=== PATIENT | male | born 1940 | race Caucasian/White ===

== ENCOUNTER 2020-01-16 17:15 | Inpatient (IN) | payer MEDICARE, BC ==
[~2020-01-16] VITALS: Ht 175.3 cm; Wt 82.6 kg
--- NOTE | 2020-01-16 17:16 | NUR ---
GIO FROM [facility] FOR BEING AGGRESSIVE TO STAFF. TO ER BED 11, HOOKED TO MONITOR, CHANGED TO HOSP GOWN, WARM BLANKET PROVIDED, PATIENT AAO x 2, PATIENT CALM AND COOPERATIVE UPON ARRIVAL IN ED. STATES "THEY HAVE NOT BEEN NICE TO ME AND IT HAS BEEN GOING ON FOR A LONG TIME NOW". SITTER AT BEDSIDE FOR SAFETY. AWAITING MD BENTLEY.
--- NOTE | 2020-01-16 17:17 | NUR ---
DR NANCE AT BEDSIDE
[2020-01-16 17:40] LABS: BASOPHILS % (AUTO) 0.3 % (0.0-2.0); EOSINOPHILS % (AUTO) 0.1 % (0.0-6.0); HEMATOCRIT 31 % (39-51); HEMOGLOBIN 10.5 g/dL (13.5-17.5); LYMPHOCYTES # (AUTO) 0.5 /CMM (0.8-4.8); LYMPHOCYTES % (AUTO) 17.3 % (20.0-44.0); MEAN CORPUSCULAR HGB CONC 34 g/dl (31.0-36.0); MEAN CORPUSCULAR VOLUME 93 fL (80-96); MONOCYTES # (AUTO) 0.4 /CMM (0.1-1.30); MONOCYTES % (AUTO) 14.5 % (2.0-12.0); NEUTROPHILS # (AUTO) 1.8 /CMM (1.8-8.9); NEUTROPHILS % (AUTO) 67.8 % (43.0-81.0); PLATELET COUNT (AUTO) 114 /CMM (150-450); RED BLOOD CELL COUNT(AUTO) 3.34 MIL/uL (4.5-6.0); WHITE BLOOD COUNT (AUTO) 2.6 K/uL (4.3-11.0)
[2020-01-16 17:56] LABS: CALCIUM, SERUM 8.6 mg/dL (8.5-10.1); CARBON DIOXIDE 31 mmol/L (21-32); CHLORIDE 102 mmol/L (98-107); CREATININE 1.9 mg/dL (0.6-1.3); GLUCOSE 136 mg/dL (74-106); POTASSIUM 3.4 mmol/L (3.5-5.1); SODIUM SERUM 141 mmol/L (136-145); UREA NITROGEN, BLOOD 36 mg/dL (7-18)
[2020-01-16 18:00] LABS: ALANINE AMINOTRANSFERASE 19 U/L (12-78); ALBUMIN 3.7 g/dL (3.4-5.0); ALCOHOL, BLOOD < 3 mg/dL (0-0); ALKALINE PHOSPHATASE 108 U/L (46-116); ASPARTATE AMINOTRANSFERASE 21 U/L (15-37); BILIRUBIN,DIRECT 0.2 mg/dL (0.0-0.2); BILIRUBIN,TOTAL 0.8 mg/dL (0.2-1.0); TOTAL PROTEIN, SERUM 7.3 g/dL (6.4-8.2)
[2020-01-16 18:01] LABS: ACETAMINOPHEN 0 ug/ml (10-30); SALICYLATE 1.2 mg/dL (2.8-20.0)
[2020-01-16 18:14] LABS: BAND % (MANUAL) 1 % (0.0-5.0); LYMPHOCYTES % (MANUAL) 17 % (16-48); MONOCYTES % (MANUAL) 9 % (0-11.0); NEUTROPHILS % (MANUAL) 73 (42-76)
--- NOTE | 2020-01-16 18:26 | NUR ---
URINE SAMPLE COLLECTED VIA STRAIGHT CATHETER, SAMPLE SENT TO LAB.
[2020-01-16 18:54] LABS: APPEARANCE,URINE Clear (CLEAR); BILIRUBIN,URINE Negative (NEGATIVE); BLOOD, URINE Negative Ery/uL (NEGATIVE); COLOR,URINE Yellow (YELLOW); KETONES,URINE Negative (NEGATIVE); LEUKOCYTE ESTERASE ,URINE Negative (NEGATIVE); NITRITE, URINE Negative (NEGATIVE); PROTEIN,URINE Negative (NEGATIVE); UGLUCOSE Negative (NEGATIVE)
--- NOTE | 2020-01-16 19:13 | NUR ---
REPORT GIVEN TO KRYS PRIEST FOR DAVID
[2020-01-16 19:16] LABS: BACTERIA,URINE Few /HPF (None Seen); RBC,URINE 0-2 /HPF (0-2); SQUAMOUS EPITHELIAL CELL,UR Few /HPF (None Seen); WBC,URINE 0-2 /HPF (0-3)
--- NOTE | 2020-01-16 19:17 | NUR ---
PT REASSESSED. NO ACUTE DISTRESS NOTED.VSS. WILL CONTINUE TO MONITOR
--- NOTE | 2020-01-16 19:29 | NUR ---
GWYN [phone] PT'S DAUGHTER
--- NOTE | 2020-01-16 19:36 | NUR ---
CALLED SUSY. LEFT VOICEMAIL
--- NOTE | 2020-01-16 19:55 | NUR ---
CALLED SUSY, SAYS SHE'LL BE HERE
--- NOTE | 2020-01-16 21:33 | NUR ---
SUSY, SKEIN BANDER AT BEDSIDE
--- NOTE | 2020-01-16 21:46 | NUR ---
CALL BACK IN 15 MINS PER GPS
--- NOTE | 2020-01-16 21:50 | NUR ---
COVID SWAB SENT TO LAB
--- NOTE | 2020-01-16 22:04 | NUR ---
REPORT GIVEN TO CEM DE LA GARZA
[2020-01-16] MEDS ORDERED: ESCI20TA PO (22:07)
[2020-01-16] MEDS ORDERED: DIVA-78 PO (22:07)
[2020-01-16] MEDS ORDERED: FURO40TA5 PO (22:08)
[2020-01-16] MEDS ORDERED: APIX2.5T PO (22:08)
[2020-01-16] MEDS ORDERED: FINA5TAB11 PO (22:08)
[2020-01-16] MEDS ORDERED: GLIM4TAB37 PO (22:09)
[2020-01-16] MEDS ORDERED: PIOG45TA5 PO (22:09)
[2020-01-16] MEDS ORDERED: QUET50TA PO (22:10)
[2020-01-16] MEDS ORDERED: CYAN-51 PO (22:10)
[2020-01-16] MEDS ORDERED: MELA5TAB PO (22:11)
[2020-01-16] MEDS ORDERED: QUET200T84 PO (22:12)
[2020-01-16] MEDS ORDERED: MEMA10TA PO (22:12)
[2020-01-16] MEDS ORDERED: TAMS-12 PO (22:13)
[2020-01-16] MEDS ORDERED: TEMA15CA PO (22:13)
[2020-01-16 23:00] VITALS: BP 103/57
--- NOTE | 2020-01-16 23:01 | NUR ---
PT TRANSFERRED TO ROOM IN STABLE CONDITION
--- NOTE | 2020-01-16 23:05 | NUR ---
GPS INFANTRYMAN NOTES PATIENT IS A 79 YEAR OLD MALE ADMITTED FROM [facility] TO [facility] ER & THEN TO GPS UNIT TO ROOM 220-1, PATIENT IS A & O X 2, CONFUSED/ FORGETFUL. HAS DEMENTIA, ANXIOUS & UNCOOPERATIVE AT TIMES. ISOLATIVE, WITHDRAWN. WANTS TO GO BACK HOME & KEEPS REPEATING IT. REFUSED SKIN CHECK TO HIS PERINEAL AREA & THIGHS. PER 5150 HOLD, PATIENT HAS BEEN AGITATED & AGGRESSIVE AT THE FACILITY. HE HAS H/O DEPRESSION & IS CURRENTLY UNMANAGABLE AT THE FACILITY. UPON FACE TO FACE ASSESSMENT, KAYCEE STATED," I DIDN'T DO ANYTHING." WHY AM I HERE ? HE THEN ADMITTED THAT HE HAS NO MEMORY OF THE EVENTS OF EARLIER. HIS DAUGHTER GWYN REPORTS THAT KAYCEE WAS YELLING AT STAFF & SPITTING AT STAFF AT THE FACILITY & THAT HE WAS REFUSING TO FOLLOW STAFF DIRECTIONS. HE WAS WANDERING INTO OTHER RESIDENTS ROOMS & TELLING STAFF THAT THEY WERE BEATING HIM UP & NOT GIVING HIM HIS SLEEPING MEDICATION. HE CAN NOT BE SAFELY MANAGED AT THE FACILITY UNTIL HE HAS BEEN STABILIZED ON HIS MEDICATION.DENIES SI/HI/AVH AT THIS TIME. PLACED CLOSED TO NURSES STATION FOR FREQUENT VISUAL CHECKS. VSS. NO ACUTE DISTRESS NOTED. NO C/O PAIN VERBALIZED. PT. IS UNDER THE PSYCHIATRIC CARE OF DR. DAS & THE MEDICAL CARE OF DR. MORALES. BELONGINGS CHECKED & INVENTORIED. REFUSED TO SIGN ALL PAPERS DUE TO CONFUSION. PATIENT IS AMBULATORY/STEADY. PATIENT'S RIGHTS HANDBOOK GIVEN. MADE AWARE. MED RECON DONE. ALL NEEDS ATTENDED TO & MET. SAFETY MEASURES MAINTAINED. BED ALARM ON, BED IN LOW/LOCKED POSITION. WILL CONTINUE TO MONITOR PATIENT Q15 MINUTES FOR SAFETY AND BEHAVIOR.
[2020-01-16] MEDS ORDERED: BLOOD SUGAR DIAGNOSTIC 1 EACH STRIP IN ONE (23:30)
[2020-01-16] MEDS ORDERED: MAG HYDROX/AL HYDROX/SIMETH 30 ML UDC PO PRN (23:30)
[2020-01-16] MEDS ORDERED: MAGNESIUM HYDROXIDE 30 ML UDC PO PRN (23:30)
[2020-01-17] MEDS: TEMAZEPAM 7.5 MG CAPSULE PO PRN (00:01)
--- NOTE | 2020-01-17 00:05 | NUR ---
GPS RN NOTE DR. MORALES IS VISITING A PATIENT & ASSURED THAT HE WILL RECONCILE THE MEDS.
--- NOTE | 2020-01-17 00:05 | NUR ---
GPS RN NOTE: INSOMNIA PATIENT VERBALIZED THAT HE IS UNABLE TO SLEEP & WOULD NEED HIS SLEEPING PILL. PRN RESTORIL 7.5 MG 1 CAP PO GIVEN. WILL CONTINUE TO MONITOR FOR EFFECTIVENESS.
[2020-01-17 08:00] VITALS: BP 112/50
[2020-01-17] MEDS: CYANOCOBALAMIN 500 MCG TABLET PO SCH (08:51)
[2020-01-17] MEDS: FINASTERIDE (5 MG) 5 MG TABLET PO SCH (08:51)
[2020-01-17] MEDS: PIOGLITAZONE HCL 15 MG TABLET PO SCH (08:51)
[2020-01-17] MEDS: APIXABAN 2.5 MG TABLET PO SCH ×2 (08:52→17:23)
[2020-01-17] MEDS ORDERED: FUROSEMIDE 40 MG TABLET PO SCH (09:00)
--- NOTE | 2020-01-17 09:00 | NUR ---
RN NOTE- PT IN ROOM ALERT CONFUSED DISORGANIZED THOUGHT PROCESS MED COMPLIANT PO INTAKE FAIR DENYING ALL
--- NOTE | 2020-01-17 12:22 | NUR ---
FACILITY CONTACT: RAMY contacted [facility] Address: [address] [facility], [place] [address] and spoke with Carin, senior oracle database administrator who states pt is able to return to the facility. She also mentioned that pt tested negative for COVID-19 on 01/12/20 but is recommending pt be retested as he laid on another residents bed who tested positive.
--- NOTE | 2020-01-17 12:32 | NUR ---
FAMILY CONTACT: RAMY contacted pts daughter Odilia ([phone]) for collateral information and discharge/treatment planning. Daughter states this is pts second psychiatric hospitalization she states that pt was diagnosed with Dementia in 2008 and declines rapidly after he was hospitalized at the beginning of this year due a blood cot. She states pt was sent to [facility] and was there for 2 weeks. Pt was then discharged to [facility] where pt had a hard time adjusting and has only been there for 3/4 months before he was hospitalized again. Daughter states pt has episodes of aggression and non-compliance. Daughter wishes for pt to return to [facility].
--- NOTE | 2020-01-17 13:33 | NUR ---
INITIAL DISCHARGE PLAN: Pt will return to [facility] Address: [address], [place] [address] once stable for discharge. RAMY will help form a safe and proper discharge in collaboration with .
[2020-01-17] MEDS: LORAZEPAM 0.5 MG TABLET PO PRN (14:30)
--- NOTE | 2020-01-17 14:30 | NUR ---
RN NOTE- PT BECOMING AGITATED TRYING TO LEAVE AND YELLING. ATIVAN 0.5 MG GIVEN
[2020-01-17] MEDS ORDERED: QUETIAPINE FUMARATE 25 MG TABLET PO ONE (15:00)
--- NOTE | 2020-01-17 15:06 | NUR ---
RN NOTE- PT AGITATED, DR DAS ORDERED SEROQUEL 25 MG X ONE DOSE NOW. REDIRECTED PT, PHONED SPOUSE SAT AND TALKED. SEROQUEL GIVEN. ASSIST ENCOURAGE REORIENT
--- NOTE | 2020-01-17 15:11 | NUR ---
GROUP THERAPY: Pt is not appropriate for group at this time or individual therapy as pt is labile and easily agitated. Pt was yelling at nurse that he wanted to leave immediately. Pt is cognitively impaired and anxious and has been wandering the hallway.
--- NOTE | 2020-01-17 15:50 | NUR ---
RN NOTE- RX EFFECTIVE DECREASED ANXIETY
[2020-01-17 16:00] VITALS: BP 119/52
[2020-01-17] MEDS: TAMSULOSIN 0.4 MG CAP.SR.24H PO SCH (17:22)
[2020-01-17] MEDS: MEMANTINE HCL 5 MG TABLET PO SCH (17:22)
[2020-01-17] MEDS: DIVALPROEX SODIUM 125 MG CAP.SPRINK PO SCH (17:22)
--- NOTE | 2020-01-17 17:30 | NUR ---
RN NOTE- PT DC AT THIS TIME TO [facility] VIA AMBULANCE AND GURNEY. PT DC PLANNING AND AFTERCARE REVIEWED W PT AND AMBULANCE STAFF. VERBALIZED UNDERSTANDING. VS STABLE, PT ALERT ORIENTED X 4. BRYANIES SI HI [facility] AT PRESENT. VALUABLES RETURNED TO PT. SKIN INTACT NO PHOTOS REQUIRED. REPORT CALLED IN TO JAYDA PRIEST AT FACILITY. ID [id number] REMOVED AND ESCORTED OFF UNIT. Addendum: 01/17/20 at 1737 by CHILANGO FITZGERALD RN DOCUMENTED ABOVE ON WRONG PATIENT
--- NOTE | 2020-01-17 17:31 | NUR ---
RN NOTE- ABOVE NOTE DOCUMENTED ON WRONG PATIENT
[2020-01-17 19:32] LABS: CHOLESTEROL 165 mg/dL (<200); HDL CHOLESTEROL 52 mg/dL (40-60); LDL 103 mg/dL (0-99); TRIGLYCERIDES 122 mg/dL (30-150)
[2020-01-17 19:39] LABS: CREATININE 1.7 mg/dL (0.6-1.3)
[2020-01-17] MEDS ORDERED: QUETIAPINE FUMARATE 25 MG TABLET PO SCH (20:00)
[2020-01-17] MEDS: QUETIAPINE FUMARATE 25 MG TABLET PO SCH (20:33)
[2020-01-17 20:54] VITALS: BP 150/79
--- NOTE | 2020-01-18 00:49 | NUR ---
GPS RN NOTES: RECEIVED CALL FROM [employer] W/ PT RESULTS POSITIVE COVID. PT HAS NO S/S OF RESP DISTRESS. BREATHING EVEN AND UNLABORED. NO S/S OF SOB. NO S/S OF COUGHING OR FEVER AT THIS TIME. NOTIFIED CONSTRUCTION SALES REPRESENTATIVE MD DR MORALES. DR MORALES AWARE. NOTIFIED AND MADE AWARE NURSING COMPLIANCE REVIEW OFFICER. IMPLEMENTED ISOLATION DROPLET PRECAUTIONS. ALL SAFETY MEASURES IN PLACE . HOWEVER PT UNABLE TO MAKE THINGS KNOWN. CONTINUE TO MONITOR PT.
--- NOTE | 2020-01-18 02:23 | NUR ---
Patient will be transferred to room 105 at 07:00 to r/o positive COVID19 test result per nursing supRoberto.
--- NOTE | 2020-01-18 06:16 | NUR ---
GPS RN NOTES: GAVE REPORT TO ARLET NURSE CASIANO IN REGARDS TO PTS TRANSFER. NOTIFIED PTS TOMAS, PTS TRANSFER / ROOM NUMBER 105. CONTINUE TO MONITOR PT.
[2020-01-18 06:39] LABS: BASOPHILS % (AUTO) 0.1 % (0.0-2.0); HEMATOCRIT 30 % (39-51); LYMPHOCYTES # (AUTO) 0.3 /CMM (0.8-4.8); LYMPHOCYTES % (AUTO) 10.7 % (20.0-44.0); MEAN CORPUSCULAR HGB CONC 34 g/dl (31.0-36.0); MEAN CORPUSCULAR VOLUME 93 fL (80-96); MONOCYTES # (AUTO) 0.4 /CMM (0.1-1.30); MONOCYTES % (AUTO) 14.2 % (2.0-12.0); NEUTROPHILS # (AUTO) 2.3 /CMM (1.8-8.9); PLATELET COUNT (AUTO) 122 /CMM (150-450)
--- NOTE | 2020-01-18 07:03 | NUR ---
RN Note: Dr Peters was notified for the transfer of the patient to room 105 .
[2020-01-18 07:06] LABS: CREATINE KINASE, TOTAL 129 U/L (39-308)
[2020-01-18 07:11] LABS: ALANINE AMINOTRANSFERASE 20 U/L (12-78); ALBUMIN 3.4 g/dL (3.4-5.0); ALKALINE PHOSPHATASE 102 U/L (46-116); ASPARTATE AMINOTRANSFERASE 24 U/L (15-37); BILIRUBIN,TOTAL 0.9 mg/dL (0.2-1.0); CALCIUM, SERUM 8.5 mg/dL (8.5-10.1); CARBON DIOXIDE 30 mmol/L (21-32); CHLORIDE 100 mmol/L (98-107); CREATININE 1.6 mg/dL (0.6-1.3); GLUCOSE 157 mg/dL (74-106); MAGNESIUM 2.1 mg/dL (1.8-2.4); PHOSPHORUS 2.4 mg/dL (2.5-4.9); POTASSIUM 3.5 mmol/L (3.5-5.1); SODIUM SERUM 138 mmol/L (136-145); TOTAL PROTEIN, SERUM 7.3 g/dL (6.4-8.2); UREA NITROGEN, BLOOD 29 mg/dL (7-18)
--- NOTE | 2020-01-18 07:35 | NUR ---
GPS RN NOTES: TRANSFER PT TO ARLET ROOM 105. NO S/S OF RESP DISTRESS. BREATHING EVEN AND UNLABORED. NO PAIN AT THIS TIME. GAVE REPORT TO RN TAYLER. HOLD GIVEN TO RN.
[2020-01-18 08:00] VITALS: BP 117/47
[2020-01-18] MEDS: PIOGLITAZONE HCL 15 MG TABLET PO SCH (08:45)
[2020-01-18] MEDS: DIVALPROEX SODIUM 125 MG CAP.SPRINK PO SCH ×2 (08:45→17:02)
[2020-01-18] MEDS: CYANOCOBALAMIN 500 MCG TABLET PO SCH (08:46)
[2020-01-18] MEDS: APIXABAN 2.5 MG TABLET PO SCH ×2 (08:46→17:03)
[2020-01-18] MEDS: FINASTERIDE (5 MG) 5 MG TABLET PO SCH (08:46)
[2020-01-18 11:46] LABS: APPEARANCE,URINE CLEAR (CLEAR); BILIRUBIN,URINE NEGATIVE (NEGATIVE); BLOOD, URINE SMALL Ery/uL (NEGATIVE); COLOR,URINE YELLOW (YELLOW); KETONES,URINE NEGATIVE (NEGATIVE); LEUKOCYTE ESTERASE ,URINE NEGATIVE (NEGATIVE); NITRITE, URINE NEGATIVE (NEGATIVE); PROTEIN,URINE 30 mg/dl (NEGATIVE); UGLUCOSE NEGATIVE (NEGATIVE)
[2020-01-18 12:19] LABS: BACTERIA,URINE None seen /HPF (None Seen); RBC,URINE 0-2 /HPF (0-2); SQUAMOUS EPITHELIAL CELL,UR 0-2 /HPF (None Seen)
[2020-01-18] MEDS ORDERED: NEUTRA PHOS 1 POWD.PACKET PO ONE (12:30)
[2020-01-18] MEDS: LORAZEPAM 0.5 MG TABLET PO PRN ×2 (12:44→17:03)
[2020-01-18 13:29] LABS: EOSINOPHIL,URINE None Seen
[2020-01-18 14:09] LABS: CREATININE, URINE 157.3 MG/DL (30.0-125.0)
[2020-01-18 16:00] VITALS: BP 148/51
--- NOTE | 2020-01-18 16:49 | NUR ---
rn notes patient trying to get out of isolation room, showed patient a copy of his hold and covid + results and he just crumpled them and threw it back to us. Patient refusing medications at this time.
[2020-01-18] MEDS: MEMANTINE HCL 5 MG TABLET PO SCH (17:03)
[2020-01-18] MEDS: TAMSULOSIN 0.4 MG CAP.SR.24H PO SCH (17:03)
--- NOTE | 2020-01-18 18:02 | NUR ---
rn notes patient remains on room air, no sob noted, patient denies pain at this time. 1;1 sitter at all times, patient wants to go home and is acting up at times. Calm at this time. bed at the lowest setting, call light within reach, side rails up x2.
--- NOTE | 2020-01-18 19:00 | NUR ---
RN OPENING NOTES RECEIVED PT ON LYING ON BED QUIET NON COMBATIVE, SITTER SITTING OUTSIDE THE ROOM BUT PT IS ON THE FIELD OF VISION, ON ROOM AIR TOLERATED WELL NO SIGN AND SYMPTOMS OF RESPIRATORY DISTRESS,ON DROPLET ISOLATION FOR COVID (+) SAFETY MEASURE ON PLACED BED ON LOWEST POSITION AND LOCKED SIDE RAILS UP X2, CALL LIGHT WITHIN REACH WILL CONT. TO MONITOR THE PT
[2020-01-18 20:00] VITALS: BP 129/76
[2020-01-18] MEDS: QUETIAPINE FUMARATE 25 MG TABLET PO SCH (20:29)
--- NOTE | 2020-01-18 21:00 | NUR ---
RN NOTES PT GET UP ON BED AND LOOKING FOR THE TOILET, ASSIST PT TO TOILET AND BACK TO HIS BED, PT BEGONE TALKING TO ME, HE SAID THAT HE WANT TO GO HOME, EXPLAIN TO HIM THAT HE CANNOT GO HOME BECAUSE HE IS COVID (+), PT TOLD ME THAT HE IS MAD BECAUSE SOMEBODY TOLD HIM THAT HE CAN GO HOME YESTERDAY BUT THEY STILL HOLD HIM HERE LIKE A SKILLED NURSING, I TOLD HIM THAT HE IS ON ISOLATION DUE TO THE COVID (+) AND MAYBE THATS THE REASON WHY HE WAS NOT DISCHARGE YET, ON THE MOMENT PT CRIED AND KEEP TELLING ME THAT IT IS VERY DISAPPOINTING THAT THEY KEEP ON LYING TO HIM, AND HE REALLY WANT TO GO HOME HE SAID THAT HE HAD A GOOD HOUSE AND BEAUTIFUL FAMILY, I TRY TO DIVERT THE ATTENTION OF THE PT AND ASK HIM THAT FOR NOW JUST TREAT ME HIS FAMILY AND JUST TALK TO ME AND ASK IF THERE IS SOMETHING HE WANTS. PT ASK WHAT TIME THEY WILL HAVE A BREAKFAST, I TOLD PT THAT IT IS ONLY 2030 IN EVENING AND SHOW TO HIM THE DARKNESS OUT SIDE THE WINDOW, THEN PT ASK FOR FOOD OFFER HIM SOME SANDWICH AND PT QUIETLY ATE THE SNACKS THAT I GAVE TO HIM, AFTER HE ATE AND AND TOOK HIS MEDICINE PT LAY DOWN TO HIS BED WILL CONT TO MONITOR THE PATIENT
[2020-01-19 04:00] VITALS: BP 126/76
--- NOTE | 2020-01-19 06:40 | NUR ---
RN CLOSING NOTES PT SLEEPING ON BED VIA ROOM AIR NO SIGN AND SYMPTOMS OF RESPIRATORY DISTRESS CALM AND QUIET RIGHT NOW BUT @ AROUND 4AM WHEN HE GO TO BATHROOM PT IS A LITTLE AGITATED AND IMPULSIVE HE DONT WANT SOME ASSISTANCE IN WALKING EVEN THOUGH HE ALMOST TRIPPED OFF ON THE BLANKET HE YELLED AT ME SAYING "IM NOT A KID DONT TOUCH ME", DROPLET ISOLATION MAINTAINED SAFETY PRECAUTION OBSERVED WILL ENDORSED TO AM SHIFT NURSE
--- NOTE | 2020-01-19 07:30 | NUR ---
RN OPENING NOTES RECEIVED PT from surgical corsetier nurse,PATIENT IN BED , SLEEPING CALMLY,ON RA, TOLERATING WELL, SKIN IS INTACT, ON LYING ON BED QUIET NON COMBATIVE, NO SIGN AND SYMPTOMS OF RESPIRATORY DISTRESS,ON DROPLET ISOLATION FOR COVID (+) SAFETY MEASURE ON PLACED BED ON LOWEST POSITION AND LOCKED SIDE RAILS UP X2, CALL LIGHT WITHIN REACH WILL CONT. TO MONITOR THE PT
[2020-01-19 08:00] VITALS: BP 139/85
[2020-01-19] MEDS: DIVALPROEX SODIUM 125 MG CAP.SPRINK PO SCH ×2 (08:54→17:08)
[2020-01-19] MEDS: FINASTERIDE (5 MG) 5 MG TABLET PO SCH (08:54)
[2020-01-19] MEDS: CYANOCOBALAMIN 500 MCG TABLET PO SCH (08:55)
[2020-01-19] MEDS: LORAZEPAM 0.5 MG TABLET PO PRN ×2 (08:56→16:00)
[2020-01-19] MEDS: APIXABAN 2.5 MG TABLET PO SCH ×2 (08:56→17:09)
[2020-01-19] MEDS: PIOGLITAZONE HCL 15 MG TABLET PO SCH (09:21)
[2020-01-19 10:45] VITALS: BP 139/85
--- NOTE | 2020-01-19 12:30 | NUR ---
RN NOTE Patient received call from tower hand informing him of the 14-day hold. Patient was upset stating he thought he is only on a 3-day hold. Spoke to Administrative Services Director GP Juliet and accdg to her there is a hearing to fight the 14 bed hold for the patient and they are trying to set up a conference call with the patient together with the hearing traveling sales representative. Informed Juliet patient has tendency to be inaccurate in his statement. For example earlier he stated he doesnt have COVID and no one in his assisted living place had COVID. Offered to show him results. When we gave him results he said he didnt say he was denying having COVID. Juliet understood. Will cont to follow up.
--- NOTE | 2020-01-19 14:46 | NUR ---
RN NOTE Seen and examined by Dr. Peters for psych consult through video/facetime. Patient was able to answer questions of the doctor for himself. Patient said yes when asked if he talked to the dividing machine operator. Alert and oriented of place and why he is hospitalized. Will cont to monitor.
--- NOTE | 2020-01-19 15:48 | NUR ---
Family Contact: SW contacted pts daughter, Odilia ([phone]), and informed her that the pt had a hearing today and that the pts hold was extended. SW then discussed potential discharge plans for the pt if he continues to test positive or if he will be negative. It was discussed that if the pt tests negative then he can go back to [facility] but if the pt continues to test positive then we will have to discharge the pt to a SNF for a period of time. Pts daughter understood and agreed to the plan.
--- NOTE | 2020-01-19 15:50 | NUR ---
PT WOKE UP, SCREAMING HE NEED TO CALL GROOVER RUNNER IMMEDIATELY, AGITATED AND TRYING TO LEAVE ROOM
[2020-01-19 16:00] VITALS: BP 131/65
[2020-01-19 16:10] LABS: *SPE ALBUMIN 3.3 g/dL (2.9-4.4); *SPE ALPHA-1-GLOBULIN 0.3 g/dL (0.0-0.4); *SPE ALPHA-2-GLOBULIN 1.1 g/dL (0.4-1.0); *SPE BETA GLOBULIN 1.1 g/dL (0.7-1.3); *SPE GLOBULIN, TOTAL 3.4 g/dL (2.2-3.9); *SPE M-SPIKE 0.3 g/dL (Not Observed)
[2020-01-19] MEDS: MEMANTINE HCL 5 MG TABLET PO SCH (17:42)
[2020-01-19] MEDS: TAMSULOSIN 0.4 MG CAP.SR.24H PO SCH (17:42)
--- NOTE | 2020-01-19 18:13 | NUR ---
RN CLOSING NOTES PT IN ROOM, WALKING AROUND, ON ROOM AIR, TOLERATING WELL, NO S/SX OF RESP DISTRESS, PATIENT BECOME CALM ND COOPERATIVE WITH STAFF, DROPLET ISOLATION MAINTAINED, PROVIDES ORAL HYGIENE SUPPLIES AND CLEAN GOWN, PT VERBALIZES GO TO THE SHOWER IN THE MORNING, SAFETY MEASURES IS IMPLEMENTED, CALL LIGHT WITHIN REACH, WILL ENDORSE TO PM SHIFT NURSE
--- NOTE | 2020-01-19 19:35 | NUR ---
RN OPENING NOTE RECEIVED PATIENT SITTING IN BED,ALERT ORIENTED X2 VERBALLY RESPONSIVE,AIRBORNE /DROPLET PRECAUTION.ANGRY,WALKING FREQUENTLY AND ASKING WHY HE CANNOT COME OUTSIDE OF HIS ROOM,COVID 19 POSITIVE, EXPLAINED,REORIENTED,BREATHING IS EVEN AND UNLABORED NO SOB NOT ACUTE DISTRESS NOTED,SAFETY MEASURE,BED ALARM IN PLACE, HE IS 5250 BED HOLD 14 DAYS EXPIRATION DATE IS 02/01/2020 ALSO HE HAS ONE TO ONE SITTER,CONTINUE TO MONITOR.
[2020-01-19] MEDS: ACETAMINOPHEN 325 MG TABLET PO PRN (19:37)
[2020-01-19 20:00] VITALS: BP 124/83
[2020-01-19] MEDS: QUETIAPINE FUMARATE 25 MG TABLET PO SCH (20:21)
[2020-01-20] VITALS: BP 124/83
[2020-01-20] MEDS: LORAZEPAM 0.5 MG TABLET PO PRN (02:28)
[2020-01-20 04:00] VITALS: BP 119/49
[2020-01-20] MEDS: ACETAMINOPHEN 325 MG TABLET PO PRN (05:01)
--- NOTE | 2020-01-20 05:10 | NUR ---
RN NOTE TEMPERATURE 101, ACETAMINOPHEN 650 MG GIVEN AT 5:00 AM CONTINUE TO MONITORING.
--- NOTE | 2020-01-20 06:20 | NUR ---
RN CLOSING NOTE, PATIENT REMAINS IN STABLE CONDITION, COVID POSITIVE,AIRBORNE/DROPLET ISOLATION,ALERT ORIENTED X1 ANGRY AGITATED,ALL DUE MEDS GIVEN MD ORDERED KEPT CLEAN AND DRY BREATHING IS EVEN AND UNLABORED NO PAIN,KEPT COMFORTABLE,KEPT CLEAN AND DRY STAY WITH SITTER ONE TO ONE,WILL ENDORSE TO COMING SHIFT FOR CONTINUATION OF CARE
[2020-01-20 08:00] VITALS: BP 137/79
--- NOTE | 2020-01-20 08:30 | NUR ---
RN OPENING NOTES RECEIVED PT. IN BED. NO ACUTE DISTRESS NOTED. PT. ON ROOM AIR, SATURATING WELL AT 97%. PT A&OX2-3, PERIODS OF CONFUSION. PT. SAFETY MAINTAINED. CALL LIGHT WITHIN REACH. WILL CONTINUE TO MONITOR.
[2020-01-20] MEDS: DIVALPROEX SODIUM 125 MG CAP.SPRINK PO SCH ×2 (08:53→18:05)
[2020-01-20] MEDS: CYANOCOBALAMIN 500 MCG TABLET PO SCH (08:53)
[2020-01-20] MEDS: FINASTERIDE (5 MG) 5 MG TABLET PO SCH (08:53)
[2020-01-20] MEDS: APIXABAN 2.5 MG TABLET PO SCH ×2 (08:53→18:07)
[2020-01-20] MEDS: PIOGLITAZONE HCL 15 MG TABLET PO SCH (08:53)
[2020-01-20] MEDS ORDERED: LOPERAMIDE HCL (2 MG CAP) 2 MG CAPSULE PO PRN (12:00)
[2020-01-20 16:00] VITALS: BP 141/84
[2020-01-20] MEDS ORDERED: QUETIAPINE FUMARATE 25 MG TABLET PO PRN (18:00)
[2020-01-20] MEDS: MEMANTINE HCL 5 MG TABLET PO SCH (18:05)
[2020-01-20] MEDS: TAMSULOSIN 0.4 MG CAP.SR.24H PO SCH (18:05)
--- NOTE | 2020-01-20 19:00 | NUR ---
RN CLOSING NOTES PT. IN BED. NO ACUTE DISTRESS NOTED. PT. ON ROOM AIR, SATURATING WELL AT 98%. PT A&OX2-3, PERIODS OF CONFUSION. PT. SAFETY MAINTAINED. CALL LIGHT WITHIN REACH. WILL ENDORSE PLAN OF CARE TO ONCOMING NURSE
[2020-01-20 20:00] VITALS: BP 133/75
[2020-01-20] MEDS: QUETIAPINE FUMARATE 25 MG TABLET PO SCH (20:09)
[2020-01-20] MEDS ORDERED: DIVALPROEX SODIUM 125 MG CAP.SPRINK PO SCH (22:00)
[2020-01-21] VITALS: BP 143/67
--- NOTE | 2020-01-21 01:08 | NUR ---
RN NOTE PT ASSISTED TO BATHROOM WHEN PT SUDDENLY STATED THAT HE FELT WEAK AND DIZZY AND THAT HE WAS GOING TO FALL. WITH HELP FROM 1:1 SITTER, PT WAS ASSISTED TO THE FLOOR. PT STATES THAT HE CANNOT STAND UP ANYMORE AND THAT HE IS SCARED. RN PROVIDED ACTIVE LISTENING AND ASSURED PT SAFETY. WITH 2 PERSON ASSIST, PT ASSISTED BACK TO BED IN STABLE CONDITION. BODY CHECK COMPLETED. NO SIGNS OF INJURY NOTED. SKIN INTACT. PT DENIES PAIN OR DISCOMFORT. TOILETING NEEDS ADDRESSED, REMINDED PT NOT TO GET UP FROM BED, REORIENTED PT PRN, CALL LIGHT WITHIN REACH, BED LOCKED AND IN LOW POSITION, BED ALARM ON, BILATERAL UPPER SIDERAILS RAISED, WILL CONTINUE TO MONITOR PATIENT.
--- NOTE | 2020-01-21 01:15 | NUR ---
RN NOTE VOLUNTEER RECRUITER ROSCOE SCHAEFER (VOLUNTEER RECRUITER PRECINCT CAPTAIN) NOTIFIED OF PT'S STATUS. NO NEW ORDERS GIVEN.
--- NOTE | 2020-01-21 07:04 | NUR ---
RN NOTE PT SLEEPING IN BED WITHOUT SIGNS OF DISTRESS OR DISCOMFORT. CALL LIGHT WITHIN REACH, BED IN LOW POSITION, BED ALARM ON, 1:1 SITTER AT BEDSIDE, ENDORSED TO MORNING RN FOR CONTINUATION OF CARE.
[2020-01-21 08:00] VITALS: BP 126/78
[2020-01-21] MEDS: FINASTERIDE (5 MG) 5 MG TABLET PO SCH (09:11)
[2020-01-21] MEDS: DIVALPROEX SODIUM 125 MG CAP.SPRINK PO SCH ×4 (09:11→22:40)
[2020-01-21] MEDS: PIOGLITAZONE HCL 15 MG TABLET PO SCH (09:11)
[2020-01-21] MEDS: CYANOCOBALAMIN 500 MCG TABLET PO SCH (09:11)
[2020-01-21] MEDS: QUETIAPINE FUMARATE 25 MG TABLET PO SCH ×4 (09:12→20:12)
[2020-01-21] MEDS: APIXABAN 2.5 MG TABLET PO SCH ×2 (09:18→16:26)
[2020-01-21] MEDS: LORAZEPAM 0.5 MG TABLET PO PRN ×2 (09:20→16:25)
[2020-01-21 12:59] LABS: BASOPHILS % (AUTO) 0.1 % (0.0-2.0); HEMATOCRIT 26 % (39-51); HEMOGLOBIN 8.8 g/dL (13.5-17.5); LYMPHOCYTES # (AUTO) 0.3 /CMM (0.8-4.8); LYMPHOCYTES % (AUTO) 9.5 % (20.0-44.0); MEAN CORPUSCULAR HGB CONC 34 g/dl (31.0-36.0); MEAN CORPUSCULAR VOLUME 92 fL (80-96); MONOCYTES # (AUTO) 0.3 /CMM (0.1-1.30); MONOCYTES % (AUTO) 7.6 % (2.0-12.0); NEUTROPHILS % (AUTO) 82.8 % (43.0-81.0); PLATELET COUNT (AUTO) 144 /CMM (150-450); RED BLOOD CELL COUNT(AUTO) 2.85 MIL/uL (4.5-6.0); WHITE BLOOD COUNT (AUTO) 3.6 K/uL (4.3-11.0)
[2020-01-21 13:28] LABS: VALPROIC ACID 21 ug/mL (50-100)
[2020-01-21 13:29] LABS: ALANINE AMINOTRANSFERASE 21 U/L (12-78); ALBUMIN 2.9 g/dL (3.4-5.0); ALKALINE PHOSPHATASE 76 U/L (46-116); ASPARTATE AMINOTRANSFERASE 35 U/L (15-37); BILIRUBIN,TOTAL 0.8 mg/dL (0.2-1.0); CALCIUM, SERUM 8.6 mg/dL (8.5-10.1); CARBON DIOXIDE 28 mmol/L (21-32); CHLORIDE 102 mmol/L (98-107); CREATININE 1.7 mg/dL (0.6-1.3); GLUCOSE 200 mg/dL (74-106); MAGNESIUM 2.1 mg/dL (1.8-2.4); POTASSIUM 3.8 mmol/L (3.5-5.1); SODIUM SERUM 138 mmol/L (136-145); TOTAL PROTEIN, SERUM 6.8 g/dL (6.4-8.2); UREA NITROGEN, BLOOD 37 mg/dL (7-18)
--- NOTE | 2020-01-21 15:54 | NUR ---
SNF Referral: SW faxed a referral to the following three facilities: [facility] with attention to Admissions to the fax number: [phone] [facility] with attention to Admissions to the fax number: [phone] [facility] with attention to [place] and admissions to the fax number: [phone].
[2020-01-21 16:00] VITALS: BP 136/81
--- NOTE | 2020-01-21 16:06 | NUR ---
SNF Contact: Dionisio from [facility] called the SW and stated that he received the referral and is aware that the pt is positive for COVID. SW stated that the pt can go back to [facility] once he is negative. He stated that he will speak to his DON and let the SW know if he will be accepted.
--- NOTE | 2020-01-21 16:10 | NUR ---
SNF Contact: Dionisio from [facility] called the SW and stated that the pt was accepted to their facility.
--- NOTE | 2020-01-21 16:11 | NUR ---
Family Contact: SW contacted pts daughter, Odilia ([phone]), and informed her that the pt was accepted to [facility] with the knowledge that the pt is positive. SW provided her with the facility address and phone number. Pts daughter expressed different potential situations to the SW and the SW worked on a plan with her for each one. SW informed her that there is no discharge date at this time and we will take it one step at a time.
[2020-01-21] MEDS: TAMSULOSIN 0.4 MG CAP.SR.24H PO SCH (17:03)
[2020-01-21] MEDS: MEMANTINE HCL 5 MG TABLET PO SCH (17:03)
--- NOTE | 2020-01-21 18:56 | NUR ---
CLOSING NOTE PT RESTING IN BED, ON ROOM AIR, SATURATING WELL, RESPIRATIONS EVEN AND UNLABORED, NO SIGNS OF RESPIRATORY DISTRESS NOTED, ALERT AND ORIENTED X 1. ALL DUE MEDS GIVEN, PROVIDED SAFETY AND COMFORT TO PT THROUGHOUT SHIFT. SITTER BY BEDSIDE. BED IN LOW POSITION, LOCKED, CALL LIGHT WITHIN REACH. WILL ENDORSE TO NOC SHIFT NURSE.
--- NOTE | 2020-01-21 19:15 | NUR ---
RN NOTE RECEIVED PATIENT AMBULATING AROUND ROOM, CONFUSED, TALKING TO SELF. BREATHING IS EVEN AND NON LABORED ON ROOM AIR. ABLE TO MAKE NEEDS KNOWN. SPEECH IS CLEAR. IN NO APPARENT DISTRESS NOTED AT THIS TIME. PATIENT HAS SITTER. BED IS LOWERED AND LOCKED FOR SAFETY. WILL CONTINUE TO MONITOR.
[2020-01-22] MEDS: TEMAZEPAM 7.5 MG CAPSULE PO PRN (01:13)
--- NOTE | 2020-01-22 07:08 | NUR ---
RN NOTE PATIENT IS RESTING IN BED AT THIS TIME. CONFUSED. BREATHING IS EVEN AND NON LABORED. NO SOB NOTED. ALL DUE MEDS GIVEN AND TOLERATED WELL. SITTER IS NEXT TO PATIENT'S ROOM. IN NO APPARENT DISTRESS NOTED AT THIS TIME. WILL ENDORSE TO AM SHIFT RN FOR CONTINUATION OF CARE.
[2020-01-22 08:00] VITALS: BP 121/68
--- NOTE | 2020-01-22 08:15 | NUR ---
RN ARLET: pt is Covid19 positive, without face mask!/applied, pt.is A/Ox1 now, confused, cooperative now, rest, no SOB/distress, no sister available now/pt is instructed re all injury/fall prevention measures, verbalized simple understanding, POC, VS WNL
[2020-01-22] MEDS: DIVALPROEX SODIUM 125 MG CAP.SPRINK PO SCH ×4 (08:55→21:32)
[2020-01-22] MEDS: PIOGLITAZONE HCL 15 MG TABLET PO SCH (08:55)
[2020-01-22] MEDS: FINASTERIDE (5 MG) 5 MG TABLET PO SCH (08:55)
[2020-01-22] MEDS: QUETIAPINE FUMARATE 25 MG TABLET PO SCH ×4 (08:56→20:28)
[2020-01-22] MEDS: CYANOCOBALAMIN 500 MCG TABLET PO SCH (08:56)
[2020-01-22] MEDS: APIXABAN 2.5 MG TABLET PO SCH ×2 (08:56→17:05)
--- NOTE | 2020-01-22 09:40 | NUR ---
RN ARLET: sitter came in
[2020-01-22 12:28] VITALS: BP 136/72
--- NOTE | 2020-01-22 14:00 | NUR ---
SHEET METAL HELPER: neurologist updated with pt.condition, VS, meds
--- NOTE | 2020-01-22 15:00 | NUR ---
SUPERVISOR TREATING AND PUMPING: second Covid19 taken
[2020-01-22 16:20] VITALS: BP 146/68
--- NOTE | 2020-01-22 16:29 | NUR ---
FSR: second attempt to draw blood sample: pt.aggressively refused
--- NOTE | 2020-01-22 17:11 | NUR ---
BRONC BREAKER: pt is A/Ox1, can follow simple commands, but confused episodes+, uncooperative, no attempts to leave bed per shift, no abnormal activity with injury risk per shift, no pain now, VS WNL, all PM/skin/bedbath done
[2020-01-22] MEDS: MEMANTINE HCL 5 MG TABLET PO SCH (17:22)
[2020-01-22] MEDS: TAMSULOSIN 0.4 MG CAP.SR.24H PO SCH (17:23)
--- NOTE | 2020-01-22 17:53 | NUR ---
BARNWORKER GROOM: spoke with pillowcase maker/Annmarie, charge nurse/Kathryn lee my/ pt concern for way to be transfer by taxi, got answer: ok with masks using
--- NOTE | 2020-01-22 18:01 | NUR ---
APPRENTICE PHOTOGRAPHER: gave pt all PPE, masks
--- NOTE | 2020-01-22 18:02 | NUR ---
BREAD PACKER: previous two notes are error
--- NOTE | 2020-01-22 18:25 | NUR ---
CLERICAL SPECIALIST: GPS MD called/spoke with pt.
--- NOTE | 2020-01-22 19:30 | NUR ---
RN OPENING NOTES RECEIVED PT ON BED AWAKE REMOVING HIS HOSPITAL GOWN, SITTER AT BEDSIDE INSTRUCTING HIM TO PUT ON HIS GOWN, FOLLOW FOR A WHILE BUT AFTER 10 MINS REMOVED AGAIN HIS GOWN SITTER AND ME KEEP REMINDING HIM TO PUT ON HIS GOWN, ON ROOM AIR SPO2 96% NO SIGN AND SYMPTOMS OF DISTRESS, MAINTAINED DROPLET ISOLATION FOR COVID (+), SAFETY MEASURE MAINTAINED BED ON LOWEST POSITION AND LOCKED WILL CONT TO MONITOR Addendum: 01/23/20 at 0655 by CARI FIERRO RN PT DENIES ANY SUICIDAL OR HOMICIDAL IDEATION AT THIS TIME, HAVE DISORGANIZED THOUGHT.
[2020-01-22 20:00] VITALS: BP 108/91
--- NOTE | 2020-01-22 20:00 | NUR ---
RN NOTES REPORTED TO SHEARING SHED WORKER DR. MALHOTRA THAT THE PT REFUSED BLOOD DRAWN AND HAD TEMP 102 WITH ORDER TO RETRY BLOOD DRAW LATER AFTER HIS NIGHT MEDICATION AND ORDER BLOOD CULTURE NOTED AND CARRIED OUT
--- NOTE | 2020-01-22 20:00 | NUR ---
RN NOTES RN AND DRYING TUNNEL OPERATOR NOTED THAT THE PT HAVE BRUISES ON RIGHT ARM AND RIGHT LATERAL CHEST NO ENDORSEMENT ABOUT THE INCIDENT OCCUR IN THE PAST DAYS
[2020-01-22] MEDS: ACETAMINOPHEN 325 MG TABLET PO PRN (20:28)
[2020-01-22 22:41] LABS: HEMOGLOBIN 8.5 g/dL (13.5-17.5); LYMPHOCYTES # (AUTO) 0.3 /CMM (0.8-4.8); MEAN CORPUSCULAR VOLUME 91 fL (80-96); MONOCYTES # (AUTO) 0.3 /CMM (0.1-1.30)
[2020-01-22 22:56] LABS: ALANINE AMINOTRANSFERASE 28 U/L (12-78); ALBUMIN 2.6 g/dL (3.4-5.0); ALKALINE PHOSPHATASE 70 U/L (46-116); ASPARTATE AMINOTRANSFERASE 53 U/L (15-37); BILIRUBIN,TOTAL 0.9 mg/dL (0.2-1.0); CALCIUM, SERUM 8.4 mg/dL (8.5-10.1); CARBON DIOXIDE 26 mmol/L (21-32); CHLORIDE 103 mmol/L (98-107); CREATININE 1.7 mg/dL (0.6-1.3); GLUCOSE 284 mg/dL (74-106); PHOSPHORUS 2.6 mg/dL (2.5-4.9); POTASSIUM 3.3 mmol/L (3.5-5.1); SODIUM SERUM 141 mmol/L (136-145); TOTAL PROTEIN, SERUM 6.5 g/dL (6.4-8.2); UREA NITROGEN, BLOOD 43 mg/dL (7-18)
[2020-01-22 23:07] LABS: HEMATOCRIT 25 % (39-51); LYMPHOCYTES % (AUTO) 4.1 % (20.0-44.0); MEAN CORPUSCULAR HGB CONC 34 g/dl (31.0-36.0); MONOCYTES % (AUTO) 4.3 % (2.0-12.0); NEUTROPHILS # (AUTO) 6.3 /CMM (1.8-8.9); NEUTROPHILS % (AUTO) 91.6 % (43.0-81.0); PLATELET COUNT (AUTO) 173 /CMM (150-450); RED BLOOD CELL COUNT(AUTO) 2.76 MIL/uL (4.5-6.0); WHITE BLOOD COUNT (AUTO) 6.8 K/uL (4.3-11.0)
[2020-01-23] VITALS: BP 115/87
--- NOTE | 2020-01-23 02:26 | NUR ---
RN NOTES RELAYED TO DR. MALHOTRA ABOUT THE K+ 3.3 LVL OF THE PT WITH ORDER OF 20 MEQ KDUR X1 NOTED AND CARRIED OUT
[2020-01-23] MEDS ORDERED: POTASSIUM CHLORIDE 20 MEQ TAB.PRT.SR PO ONE (03:00)
--- NOTE | 2020-01-23 03:27 | NUR ---
RN NOTES PT WAKE UP AND STARTED TO TALK TO HIS SELF HE IS CALLING THE NAME OF HIS DAUGHTER GWYN, KEEP SAYING "PLEASE TALK TO ME GWYN, I WANT TO GO HOME, PLEASE PLEASE," WILL CONT TO MONITOR THE PT
[2020-01-23 04:00] VITALS: BP 103/44
--- NOTE | 2020-01-23 04:30 | NUR ---
RN NOTES AGATHA TOOK THE VITAL SIGNS OF THE PT @ 0330 SHE NOTICE THAT PT SPO2 IS 80-85 % ONLY, SHE MADE ME AWARE ASSESSED PT THERE IS NO SIGN AND SYMPTOMS OF SOB, PUT ON 02 VIA NC @ 3L BUT AFTER 15 MINUTES SPO2 REMAIN @ 80-85% , PUT PT ON 02 5L VIA MASK AFTER 20 MINS HIS SPO2 IS 90-91, KEPT PT ON O2 VIA MASK CHARGE NURSE MADE AWARE WILL CONT TO MONITOR THE PT
--- NOTE | 2020-01-23 06:47 | NUR ---
RN CLOSING NOTES PT ON BED ASLEEP INTERMITTENTLY, ON O2 3L VIA NC SPO2 90%, NO ACUTE RESPIRATORY DISTRESS NOTED, NO PAIN COMPLAINT, STILL ASKING THE SITTER THAT HE WANTS TO GO HOME, SOMETIME PATIENT BECOME AGITATED AND UNCOOPERATIVE BUT AFTER A WHILE HE WILL CHANGE PHASE AND COOPERATE WITH THE SITTER, PT STILL HAVE DISORGANIZED THOUGHT PT DENIES ANY SUICIDAL AND HOMICIDAL IDEATION AT THIS TIME, ALL NEEDS ATTENDED SAFETY MEASURE MAINTAINED SIDE RAILS UP X2 BED ON LOWEST POSITION AND LOCKED WILL ENDORSED TO AM SHIFT NURSE
[2020-01-23 08:00] VITALS: BP_SYST 136; BP_DIAS 58; BP_DIAS 88
--- NOTE | 2020-01-23 08:13 | NUR ---
RN OPENING NOTE: RECEIVED PATIENT IN BED THIS MORNING. PATIENT IS ALERT AND ORIENTED X1, CONFUSED AND FORGETFUL. RUNNING ON O2 VIA NC AT 5L/MIN, NO SIGNS OF ACUTE RESPIRATORY DISTRESS NOTED. NO SIGNS OF ACUTE DISTRESS NOTED. PATIENT IS AMBULATORY WITH ASSIST, UNSTEADY GAIT. DENIES SI/HI/VAH AT THIS PRESENT TIME. ANXIOUSNESS NOTED. SAFETY MEASURES IMPLEMENTED, BED IN LOWEST POSITION, LOCKED, SIDE RAILS UP, CALL LIGHT WITHIN REACH. WILL CONTINUE TO MONITOR PATIENT FOR SAFETY, BEHAVIOR AND CHANGES PER PROTOCOL.
[2020-01-23] MEDS: PIOGLITAZONE HCL 15 MG TABLET PO SCH (08:59)
[2020-01-23] MEDS: DIVALPROEX SODIUM 125 MG CAP.SPRINK PO SCH ×3 (08:59→17:03)
[2020-01-23] MEDS: LORAZEPAM 0.5 MG TABLET PO PRN (08:59)
[2020-01-23] MEDS: FINASTERIDE (5 MG) 5 MG TABLET PO SCH (09:00)
[2020-01-23] MEDS: QUETIAPINE FUMARATE 25 MG TABLET PO SCH ×3 (09:00→17:03)
[2020-01-23] MEDS: CYANOCOBALAMIN 500 MCG TABLET PO SCH (09:00)
[2020-01-23] MEDS: APIXABAN 2.5 MG TABLET PO SCH ×2 (09:04→17:04)
[2020-01-23 11:32] LABS: ABG BASE EXCESS 2.3 mmol/L; ABG OXYGEN SATURATION 89.2 % (92.0-98.5); ABG PCO2 35.5 mmHg (35.0-45.0); ABG PH 7.479 (7.350-7.450); ABG PO2 56.9 mmHg (75.0-100.0); AaDO2 187.5 mmHg; COHb 0.3 % (0.5-1.5); MetHb 0.1 % (0.0-1.5); O2Hb 88.8 % (94.0-97.0); SITE, ABG Right Radial
[2020-01-23 11:35] LABS: ALBUMIN 2.5 g/dL (3.4-5.0); BILIRUBIN,DIRECT 0.2 mg/dL (0.0-0.2); BILIRUBIN,TOTAL 0.8 mg/dL (0.2-1.0); TOTAL PROTEIN, SERUM 6.5 g/dL (6.4-8.2)
[2020-01-23 12:00] VITALS: BP 165/73
[2020-01-23 12:23] LABS: C-REACTIVE PROTEIN 24.5 mg/dL (0.0-0.9)
[2020-01-23 16:00] VITALS: BP 122/90
--- NOTE | 2020-01-23 16:51 | NUR ---
CONTACTED DR EDWARDS IN REGARDS TO PATIENT BEING A DNR/DNI ACCORDING TO GWYN ROTHMAN (OLDEST DAUGHTER) [phone]. AWAITING CALL BACK FROM MD TO CLARIFY CODE STATUS WITH DAUGHTER.
[2020-01-23] MEDS: ACETAMINOPHEN 325 MG TABLET PO PRN (17:03)
[2020-01-23] MEDS: TAMSULOSIN 0.4 MG CAP.SR.24H PO SCH (17:06)
[2020-01-23] MEDS: MEMANTINE HCL 5 MG TABLET PO SCH (17:06)
--- NOTE | 2020-01-23 17:49 | NUR ---
SPOKE TO JUDSON, DAUGHTER TO TRY AND OBTAIN OVER THE PHONE CONSENT FOR CONVALESCENT PLASMA, PATIENT WILL CALL ME BACK WITH RESPONSE ON CONSENT.
--- NOTE | 2020-01-24 10:01 | NUR ---
Family Contact: SW contacted pts daughter, Odilia ([phone]), and informed her that the pt was discharged from the [facility] and therefore her point of contact for discharge planning would be the patient case manager. RAMY transferred the call to the patient case manager.
--- NOTE | 2020-01-24 10:02 | NUR ---
Discharge Note: Pt was discharged to the Medical Floor of [facility] on 01/23/20. Pts daughter has been informed and the plan for the pt is to be discharged to [facility] once he is more stable.
== END 2020-01-23 12:00 | disposition short-term general hospital (02) | DRG 885 ==
LOC: ER 17:19 → GPS 21:41 → GPSOV1 01-18 07:23 → GPS 01-18 07:23 → GPSOV1 01-18 12:55 → UNDODISIN 01-18 16:00 → GPSOV1 01-23 12:09 → TELE-TD 01-23 12:09 → UNDODISIN 01-23 17:55
PROVIDERS: ADMIT Psychiatry & Neurology Psychosomatic Medicine; ATTEND Hospitalist
DX: F33.3 Major depressive disorder, recurrent, severe with psychotic symptoms (principal); F01.51 Vascular dementia, unspecified severity, with behavioral disturbance; U07.1 COVID-19; N18.9 Chronic kidney disease, unspecified; N17.0 Acute kidney failure with tubular necrosis; J96.91 Respiratory failure, unspecified with hypoxia; J12.89 Other viral pneumonia; F03.91 Unspecified dementia, unspecified severity, with behavioral disturbance; D61.818 Other pancytopenia; I13.0 Hypertensive heart and chronic kidney disease with heart failure and stage 1 through stage 4 chronic kidney disease, or unspecified chronic kidney disease; F02.81 Dementia in other diseases classified elsewhere, unspecified severity, with behavioral disturbance; N25.81 Secondary hyperparathyroidism of renal origin; G93.40 Encephalopathy, unspecified; F29 Unspecified psychosis not due to a substance or known physiological condition; I48.0 Paroxysmal atrial fibrillation; F41.9 Anxiety disorder, unspecified; Z73.6 Limitation of activities due to disability; Z91.81 History of falling; N40.0 Benign prostatic hyperplasia without lower urinary tract symptoms; E11.22 Type 2 diabetes mellitus with diabetic chronic kidney disease; Z79.899 Other long term (current) drug therapy; Z86.718 Personal history of other venous thrombosis and embolism; I50.9 Heart failure, unspecified; N25.0 Renal osteodystrophy; R27.8 Other lack of coordination
CPT/HCPCS: 36415; 36600; 71045-TC; 80048-TC; 80053-TC; 80061-TC; 80076-TC; 80164-TC; 80305; 81000-TC; 82550-TC; 82565-TC; 82570-TC; 82962-TC; 83735-TC; 83970; 84100-TC; 84155; 84155-TC; 84165; 84300-TC; 85025-TC; 86140-TC; 87040-TC; 87081-TC; G0480; J7050; U0003-CS

== ENCOUNTER 2020-01-18 06:10 | Inpatient (IN) | payer MEDICARE, BC ==
[~2020-01-18 06:10] MED LIST: APIX2.5T PO; CYAN-51 PO; DIVA-78 PO; ESCI20TA PO; FINA5TAB11 PO; FURO40TA5 PO; GLIM4TAB37 PO; MELA5TAB PO; MEMA10TA PO; PIOG45TA5 PO; QUET200T84 PO; QUET50TA PO; TAMS-12 PO; TEMA15CA PO
[2020-01-23] MEDS: QUETIAPINE FUMARATE 100 MG TABLET PO SCH (18:30)
[2020-01-23] MEDS ORDERED: DEXTROSE 50%-WATER 50 ML DISP.SYRIN IV PRN (18:30)
--- NOTE | 2020-01-23 19:23 | NUR ---
RN CLOSING NOTE: PATIENT REMAINS IN BED. NO SIGNS OF ACUTE DISTRESS NOTED. SAFETY MEASURES IMPLEMENTED, BED IN LOWEST POSITION, LOCKED, SIDE RAILS UP, CALL LIGHT WITHIN REACH. ENDORSED TO CEM WALKER FOR CONTINUITY OF CARE AND TO ADMIT PATIENT.
--- NOTE | 2020-01-23 19:30 | NUR ---
"RN ADMITTING NOTES: RECEIVED PATIENT FROM OUTGOING NURSE SVETLANA; ADMITTING DIAGNOSIS OF PNEUMONIA AND HYPOXIC RESPIRATORY FAILURE; COVID TESTING RESULTS WAS POSITIVE LAST 01.16.2020, RE-SWAB DONE LAST 01.22.20-PENDING RESULT. PATIENT A|OX1; CONFUSED.PERSIAN SPEAKING. DENIES PAIN. IN NO S/SX OF ACUTE DISTRESS AT THIS TIME. NO SOB NOTED. PATIENT'S BREATHING IS EVEN AND UNLABORED. PATIENT IS ON 10 L OF OXYGEN VIA FACE MASKS; TOLERATING WELL;SATURATING @95% AT THE RECEIPT. PATIENT ON TELE MONITORING READING SINUS TACHY WITH HR 100s. NO IV SITE NOTED. PATIENT SKIN IS INTACT. HAS UNSTEADY GAIT WITH SITTER ON BEDSIDE. PATIENT KEPT CLEAN , DRY AND COMFORTABLE.SAFETY MEASURES HAVE BEEN PROVIDED AND IMPLEMENTED. PATIENT BED ALARM IS ON. HEAD OF BED ELEVATED. BED IS LOCKED, IN LOWEST POSITION AND SIDE RAILS UP. CALL LIGHT WITHIN REACH OF THE PATIENT. ISOLATION PRECAUTIONS IN PLACE. WILL CONTINUE TO MONITOR AND REASSESS FOR ANY CHANGES. WILL ATTEND TO ALL MD ADMITTING ORDERS."
[2020-01-23 20:00] VITALS: BP 150/71
[2020-01-23 22:00] VITALS: BP 150/71
[2020-01-23] MEDS: BLOOD SUGAR DIAGNOSTIC 1 EACH STRIP VI SCH (22:44)
[2020-01-23] MEDS: TEMAZEPAM 7.5 MG CAPSULE PO SCH (22:44)
[2020-01-23] MEDS: *INSULIN REGULAR(HUMULIN R)HUM 100 UNIT/ML VIAL SQ PRN (22:54)
[2020-01-24] VITALS: BP 161/83
[2020-01-24 04:00] VITALS: BP 156/70
--- NOTE | 2020-01-24 06:29 | NUR ---
RN CLOSING NOTE: PATIENT REMAINS IN ROOM. NO SIGNS OF RESPIRATORY. ALL DUE MEDICATIONS GIVEN SCHEDULED & ORDERED. SAFETY MEASURES IMPLEMENTED, BED IN LOWEST POSITION, LOCKED, SIDE RAILS UP, CALL LIGHT WITHIN REACH. ENDORSED TO INCOMING SHIFT RN FOR CONTINUITY OF CARE.
[2020-01-24 06:34] LABS: HEMATOCRIT 27 % (39-51); HEMOGLOBIN 9.2 g/dL (13.5-17.5); LYMPHOCYTES # (AUTO) 0.2 /CMM (0.8-4.8); LYMPHOCYTES % (AUTO) 3.4 % (20.0-44.0); MEAN CORPUSCULAR HGB CONC 35 g/dl (31.0-36.0); MEAN CORPUSCULAR VOLUME 91 fL (80-96); MONOCYTES # (AUTO) 0.3 /CMM (0.1-1.30); MONOCYTES % (AUTO) 3.7 % (2.0-12.0); NEUTROPHILS # (AUTO) 6.5 /CMM (1.8-8.9); NEUTROPHILS % (AUTO) 92.9 % (43.0-81.0); PLATELET COUNT (AUTO) 198 /CMM (150-450); RED BLOOD CELL COUNT(AUTO) 2.94 MIL/uL (4.5-6.0)
[2020-01-24 06:55] LABS: CALCIUM, SERUM 9.1 mg/dL (8.5-10.1); CARBON DIOXIDE 30 mmol/L (21-32); CHLORIDE 107 mmol/L (98-107); CREATININE 1.6 mg/dL (0.6-1.3); GLUCOSE 224 mg/dL (74-106); MAGNESIUM 2.3 mg/dL (1.8-2.4); PHOSPHORUS 3.3 mg/dL (2.5-4.9); POTASSIUM 3.5 mmol/L (3.5-5.1); SODIUM SERUM 147 mmol/L (136-145); UREA NITROGEN, BLOOD 47 mg/dL (7-18)
[2020-01-24] MEDS: BLOOD SUGAR DIAGNOSTIC 1 EACH STRIP VI SCH ×4 (07:30→22:53)
[2020-01-24 08:00] VITALS: BP 143/59
--- NOTE | 2020-01-24 08:15 | NUR ---
RN OPENING NOTE: RECEIVED PATIENT IN BED THIS MORNING. PATIENT IS ALERT AND ORIENTED X1, CONFUSED. ON 10L/MIN VIA FACE MASK, SATING WELL. NO SIGNS OF ACUTE RESPIRATORY DISTRESS NOTED. NO SIGNS OF ACUTE DISTRESS NOTED. PATIENT IS ST IN IN THE 120S ON TELE MONITORING. PATIENT IS RESTLESS AND PATIENT IS WEAK ON BED REST. PATIENT IS 1:1 STATUS. SAFETY MEASURES IMPLEMENTED, BED IN LOWEST POSITION, LOCKED, SIDE RAILS UP, CALL LIGHT WITHIN REACH. WILL CONTINUE TO MONITOR PATIENT FOR CHANGES.
[2020-01-24] MEDS: FINASTERIDE (5 MG) 5 MG TABLET PO SCH (08:40)
[2020-01-24] MEDS: ESCITALOPRAM OXALATE (10 MG) 10 MG TABLET PO SCH (08:40)
[2020-01-24] MEDS: DIVALPROEX SODIUM 125 MG CAP.SPRINK PO SCH (08:40)
[2020-01-24] MEDS: CYANOCOBALAMIN 500 MCG TABLET PO SCH (08:40)
[2020-01-24] MEDS: APIXABAN 2.5 MG TABLET PO SCH ×2 (08:40→17:34)
[2020-01-24] MEDS: INSULIN REGULAR, HUMAN 100 UNIT/ML 3 ML VIAL SQ PRN ×2 (08:42→12:51)
[2020-01-24] MEDS ORDERED: FUROSEMIDE 40 MG TABLET PO SCH (09:00)
[2020-01-24 12:00] VITALS: BP 164/83
[2020-01-24] MEDS ORDERED: LORAZEPAM 1 MG TABLET PO PRN ×2 (12:30→17:30)
[2020-01-24 16:00] VITALS: BP 148/82
--- NOTE | 2020-01-24 17:18 | NUR ---
PATIENT'S O2 SAT KEEPS ON DROPPING. CHANGED SIMPLE FACE MASK TO NON-REBREATHER WITH THE O2 ALL THE WAY UP WITH ORDERS FOR HIGH FLOW AND NON-REBREATHER IF NECESSARY. PATIENT IS CURRENTLY SATING IN THE HIGH 80S, AWAITING HIGH FLOW.
[2020-01-24] MEDS: MEMANTINE HCL 5 MG TABLET PO SCH (17:31)
[2020-01-24] MEDS: TAMSULOSIN 0.4 MG CAP.SR.24H PO SCH (17:33)
[2020-01-24] MEDS: QUETIAPINE FUMARATE 100 MG TABLET PO SCH (17:33)
[2020-01-24] MEDS ORDERED: Medication Not On Formulary EA (Melatonin 1 TAB) PO SCH (18:00)
--- NOTE | 2020-01-24 18:02 | NUR ---
PATIENT'S O2 SAT IS NOW AT 92% ON HIGH FLOW
--- NOTE | 2020-01-24 18:02 | NUR ---
6941 INSULIN NOT GIVEN D/T PATIENT REFUSING DINNER
--- NOTE | 2020-01-24 18:55 | NUR ---
RN CLOSING NOTE: PATIENT REMAINS IN BED. PATIENT IS NOW ON HIGH FLOW OXYGEN SATING IN THE LOW 90S, CLOSE MONITORING OF OXYGENATION INITIATED. PATIENT COVID RESULTS CAME BACK NEGATIVE, ORDERED ONE MORE COVID TEST AND WILL ENDORSE TO ONCOMING RN TO SWAB PATIENT. WILL ALSO ENDORSE TO FOLLOW UP WITH PSYCHIATRIST DR DAS IN THE MORNING TO RE-EVALUATE PSYCH MEDS TO BETTER CONTROL PATIENT'S BEHAVIOR PER DR SORTO. PATIENT IS SR/ST IN THE 90S WITH PVCS NOTED. SAFETY MEASURES IMPLEMENTED, BED IN LOWEST POSITION, LOCKED, SIDE RAILS UP, CALL LIGHT WITHIN REACH. WILL ENDORSE TO [facility] FOR CONTINUITY OF CARE.
--- NOTE | 2020-01-24 19:25 | NUR ---
RN OPENING NOTES: RECEIVED PT A/OX1; CONFUSED AND NON RESPONSIVE. PATIENT IN BED RESTING COMFORTABLY. PATIENT IN NO S/SX OF ACUTE DISTRESS AT THIS TIME. NO SOB NOTED. PATIENT'S BREATHING IS EVEN AND UNLABORED. PATIENT IS ON HIGH FLOW; TOLERATING WELL. SATURATING >95% O2 SAT. PATIENT ON TELE MONITORING READING SINUS TACHY HR IS 100S. SAFETY MEASURES HAVE BEEN PROVIDED AND IMPLEMENTED. PATIENT BED ALARM IS ON. HEAD OF BED ELEVATED. BED IS LOCKED, IN LOWEST POSITION AND SIDE RAILS UP. CALL LIGHT WITHIN REACH OF THE PATIENT. ISOLATION PRECAUTIONS IN PLACE. WILL CONTINUE TO MONITOR AND REASSESS FOR ANY CHANGES.
[2020-01-24] MEDS ORDERED: LORAZEPAM INJ 2 MG/ML VIAL IV PRN (19:30)
[2020-01-24] MEDS ORDERED: MORPHINE SULFATE INJ 2 MG/ML DISP.SYRIN IVP PRN (19:30)
[2020-01-24 20:00] VITALS: BP 145/52
[2020-01-24] MEDS: TEMAZEPAM 7.5 MG CAPSULE PO SCH (21:46)
--- NOTE | 2020-01-24 22:30 | NUR ---
RN NOTES RECEIVED CALL FROM LAB, ADVISING THAT C-DIFF ORDER HASNT BEEN PLACED. REQUESTED FOR AN ORDER TO BE PLACED TO FACILITATE LAB WORK. CALL RN-SVETLANA ( AM SHIFT RN), CONFIRMED THAT C-DIFF ORDER HAS BEEN CONFIRMED BY DR. SORTO.ORDER WAS REMOVED FROM THE SYSTEM SINCE PT WAS TRANSFERRED FROM GPS TO [facility] TO TELE. BUT SHE CONFIRMED THAT DR. SORTO ORDERED C-DIFF FOR PT. INFORMED LEAD MAINTENANCE TECHNICIAN REGARDING CONCERN MATTER. PLAN: WILL MAKE ORDER UNDER DR. SORTO FOR C-DIFF.
[2020-01-24] MEDS: *INSULIN REGULAR(HUMULIN R)HUM 100 UNIT/ML VIAL SQ PRN (22:57)
--- NOTE | 2020-01-24 23:00 | NUR ---
RN NOTES FACILITATED COVID SWAB TEST FOR PATIENT. SPECIMEN DROPPED OFF TO LAB.
[2020-01-25] VITALS: BP 147/52
[2020-01-25 04:00] VITALS: BP 137/56
[2020-01-25 06:31] LABS: BASOPHILS % (AUTO) 0.1 % (0.0-2.0); EOSINOPHILS % (AUTO) 0.4 % (0.0-6.0); HEMATOCRIT 26 % (39-51); LYMPHOCYTES # (AUTO) 0.3 /CMM (0.8-4.8); LYMPHOCYTES % (AUTO) 6.4 % (20.0-44.0); MEAN CORPUSCULAR HGB CONC 34 g/dl (31.0-36.0); MEAN CORPUSCULAR VOLUME 91 fL (80-96); MONOCYTES # (AUTO) 0.2 /CMM (0.1-1.30); NEUTROPHILS # (AUTO) 4.2 /CMM (1.8-8.9); NEUTROPHILS % (AUTO) 89.1 % (43.0-81.0); PLATELET COUNT (AUTO) 192 /CMM (150-450); WHITE BLOOD COUNT (AUTO) 4.7 K/uL (4.3-11.0)
[2020-01-25 06:33] LABS: CALCIUM, SERUM 8.8 mg/dL (8.5-10.1); CARBON DIOXIDE 34 mmol/L (21-32); CHLORIDE 107 mmol/L (98-107); CREATININE 1.6 mg/dL (0.6-1.3); GLUCOSE 197 mg/dL (74-106); MAGNESIUM 2.2 mg/dL (1.8-2.4); PHOSPHORUS 3.6 mg/dL (2.5-4.9); SODIUM SERUM 149 mmol/L (136-145); UREA NITROGEN, BLOOD 48 mg/dL (7-18)
--- NOTE | 2020-01-25 06:38 | NUR ---
RN CLOSING NOTE: PATIENT REMAINS IN ROOM. NO SIGNS OF RESPIRATORY. SAFETY MEASURES IMPLEMENTED, BED IN LOWEST POSITION, LOCKED, SIDE RAILS UP, CALL LIGHT WITHIN REACH. ENDORSED TO INCOMING SHIFT RN FOR CONTINUITY OF CARE.
[2020-01-25] MEDS: POTASSIUM CL. PREMIX PERIPHER. 50 ML IV SCH ×4 (07:56→10:40)
[2020-01-25 08:00] VITALS: BP 132/84
--- NOTE | 2020-01-25 08:00 | NUR ---
RN OPENING NOTE: RECEIVED PATIENT IN ROOM. PT IS ON HIGH FLOW ON 80 WITH 98% SATURATION.NO SIGNS OF RESPIRATORY DISTRESS. SAFETY MEASURES IMPLEMENTED, BED IN LOWEST POSITION, LOCKED, SIDE RAILS UP, CALL LIGHT WITHIN REACH. WILL CONTINUITY CARE.
[2020-01-25] MEDS: ESCITALOPRAM OXALATE (10 MG) 10 MG TABLET PO SCH (09:15)
[2020-01-25] MEDS: DIVALPROEX SODIUM 125 MG CAP.SPRINK PO SCH (09:15)
[2020-01-25] MEDS: APIXABAN 2.5 MG TABLET PO SCH ×2 (09:16→17:34)
[2020-01-25] MEDS: FINASTERIDE (5 MG) 5 MG TABLET PO SCH (09:16)
[2020-01-25] MEDS: CYANOCOBALAMIN 500 MCG TABLET PO SCH (09:16)
[2020-01-25] MEDS: BLOOD SUGAR DIAGNOSTIC 1 EACH STRIP VI SCH ×4 (09:31→22:15)
[2020-01-25] MEDS: INSULIN REGULAR, HUMAN 100 UNIT/ML 3 ML VIAL SQ PRN ×2 (09:33→12:36)
[2020-01-25 12:00] VITALS: BP 138/72
[2020-01-25] MEDS ORDERED: Z GUARD REMEDY 2 OZ OINT TP PRN (15:00)
[2020-01-25 16:00] VITALS: BP 138/72
[2020-01-25] MEDS: TAMSULOSIN 0.4 MG CAP.SR.24H PO SCH (17:33)
[2020-01-25] MEDS: QUETIAPINE FUMARATE 100 MG TABLET PO SCH (17:33)
[2020-01-25] MEDS: MEMANTINE HCL 5 MG TABLET PO SCH (17:33)
[2020-01-25] MEDS: *INSULIN REGULAR(HUMULIN R)HUM 100 UNIT/ML VIAL SQ PRN ×2 (18:20→22:17)
--- NOTE | 2020-01-25 18:48 | NUR ---
RN CLOSING NOTE: PATIENT IN ROOM. PULLED HIS IV. PT IS ON HIGH FLOW ON 80 WITH 98% SATURATION.NO SIGNS OF RESPIRATORY DISTRESS. SAFETY MEASURES IMPLEMENTED, BED IN LOWEST POSITION, LOCKED, SIDE RAILS UPX2 CALL LIGHT WITHIN REACH. WILL ENDORSE TO THE [facility] FOR CONTINUITY CARE.
--- NOTE | 2020-01-25 19:20 | NUR ---
RN NOTE RECEIVED PATIENT IN BED RESTING WITH HOB ELEVATED, WATCHING TV. A&O X1, CONFUSED. BREATHING IS EVEN AND NON LABORED. NO SOB NOTED AT THIS TIME. ON O2 FIGH LOW 60 LPM VIA NC. ABLE TO MAKE NEEDS KNOWN. ON ISOLATION FOR COVID+. PER AM RN, PATIENT PULLED OUT IV. IN NO APPARENT DISTRESS NOTED AT THIS TIME. BED IS LOWERED AND LOCKED FOR SAFETY. CALL LIGHT IS WITHIN REACH. SITTER NEAR BEDSIDE. WILL CONTINUE TO MONITOR.
[2020-01-25 20:00] VITALS: BP 129/54
[2020-01-25] MEDS: TEMAZEPAM 7.5 MG CAPSULE PO SCH (21:59)
[2020-01-26] VITALS (7 sets, daily range): BP systolic 120–140; BP diastolic 48–84
--- NOTE | 2020-01-26 06:56 | NUR ---
RN NOTE PATIENT IS STABLE AT THIS TIME. NO SIGNIFICANT CHANGED NOTED THROUGHOUT THE NIGHT. BREATHING IS EVEN AND NON LABORED, NO SOB NOTED. KEPT ON O2 HIGH FLOW VIA T-PIECE. ALL DUE MEDS GIVEN AND TOLERATED WELL. NEW IV SITE INSERTED ON RIGHT HAND GAUGE 22. PATIENT KEPT CLEAN, DRY, AND COMFORTABLE. ALL NEEDS ATTENDED AND MET. WILL ENDORSE TO AM SHIFT RN FOR CONTINUATION OF CARE.
[2020-01-26] MEDS: ESCITALOPRAM OXALATE (10 MG) 10 MG TABLET PO SCH (08:15)
[2020-01-26] MEDS: FINASTERIDE (5 MG) 5 MG TABLET PO SCH (08:15)
[2020-01-26] MEDS: DIVALPROEX SODIUM 125 MG CAP.SPRINK PO SCH (08:15)
[2020-01-26] MEDS: CYANOCOBALAMIN 500 MCG TABLET PO SCH (08:15)
[2020-01-26] MEDS: APIXABAN 2.5 MG TABLET PO SCH ×2 (08:16→17:00)
[2020-01-26] MEDS: BLOOD SUGAR DIAGNOSTIC 1 EACH STRIP VI SCH ×3 (08:24→17:57)
--- NOTE | 2020-01-26 08:30 | NUR ---
RN OPENING NOTE: RECEIVED PATIENT IN BED THIS MORNING. PATIENT IS ALERT AND ORIENTED X1, CONFUSED. ON HIGH FLOW OXYGEN, SATING WELL. NO SIGNS OF ACUTE RESPIRATORY DISTRESS NOTED. NO SIGNS OF ACUTE DISTRESS NOTED. PATIENT IS ST IN IN THE 100S ON TELE MONITORING. PATIENT IS RESTLESS AND PATIENT IS WEAK ON BED REST. PATIENT IS 1:1 STATUS. SAFETY MEASURES IMPLEMENTED, BED IN LOWEST POSITION, LOCKED, SIDE RAILS UP, CALL LIGHT WITHIN REACH. WILL CONTINUE TO MONITOR PATIENT FOR CHANGES.
[2020-01-26] MEDS: INSULIN REGULAR, HUMAN 100 UNIT/ML 3 ML VIAL SQ PRN ×2 (08:33→12:26)
[2020-01-26] MEDS ORDERED: TAMS-12 PO (13:08)
[2020-01-26] MEDS ORDERED: Morphine Sulfate Inj IVP (13:08)
[2020-01-26] MEDS ORDERED: FINA5TAB3 PO (13:08)
[2020-01-26] MEDS ORDERED: APIX2.5T PO (13:08)
[2020-01-26] MEDS ORDERED: INSU100V28 SQ (13:08)
[2020-01-26] MEDS ORDERED: MEMA5TAB PO (13:08)
--- NOTE | 2020-01-26 13:25 | NUR ---
patient discharge to in house hospice,praneeth swanson made aware ,per cm awaits [facility] pt.
[2020-01-26] MEDS: MEMANTINE HCL 5 MG TABLET PO SCH (17:34)
[2020-01-26] MEDS: TAMSULOSIN 0.4 MG CAP.SR.24H PO SCH (17:34)
[2020-01-26] MEDS: QUETIAPINE FUMARATE 100 MG TABLET PO SCH (17:34)
--- NOTE | 2020-01-26 17:37 | NUR ---
JUVE HELD D/T HGB 9.0 HCT 26
--- NOTE | 2020-01-26 17:58 | NUR ---
INSULIN HELD D/T PATIENT'S REFUSAL OF DINNER
== END 2020-01-26 18:45 | disposition hospice, inpatient (51) | DRG 177 ==
LOC: UNDOADMIN 06:10 → TELE-TD 06:10 → UNDOADMIN 01-23 15:39 → TELE-TD 01-23 15:39 → TELE1 01-23 19:49 → TELE-TD 01-23 19:49
PROVIDERS: ADMIT Student in an Organized Health Care Education/Training Program; ATTEND Student in an Organized Health Care Education/Training Program
DX: U07.1 COVID-19 (principal); J96.01 Acute respiratory failure with hypoxia; J12.89 Other viral pneumonia; Z51.5 Encounter for palliative care; Z66 Do not resuscitate; N17.0 Acute kidney failure with tubular necrosis; F23 Brief psychotic disorder; D61.818 Other pancytopenia; I13.0 Hypertensive heart and chronic kidney disease with heart failure and stage 1 through stage 4 chronic kidney disease, or unspecified chronic kidney disease; N25.81 Secondary hyperparathyroidism of renal origin; E87.0 Hyperosmolality and hypernatremia; N40.0 Benign prostatic hyperplasia without lower urinary tract symptoms; N18.9 Chronic kidney disease, unspecified; M62.81 Muscle weakness (generalized); I48.0 Paroxysmal atrial fibrillation; E11.22 Type 2 diabetes mellitus with diabetic chronic kidney disease; F41.9 Anxiety disorder, unspecified; F32.9 Major depressive disorder, single episode, unspecified; N25.0 Renal osteodystrophy; I50.9 Heart failure, unspecified; Z91.81 History of falling; Z78.1 Physical restraint status; F01.50 Vascular dementia, unspecified severity, without behavioral disturbance, psychotic disturbance, mood disturbance, and anxiety
CPT/HCPCS: 36415; 71045-TC; 80048-TC; 83735-TC; 84100-TC; 85025-TC; 86140-TC; 94760-TC; 94762-TC; 94799-TC; G0378; J1815; J2060; J3480; J7050; U0003-CS

== ENCOUNTER 2020-01-26 18:40 | Inpatient (IN) | payer OTHER ==
[~2020-01-26] VITALS: Ht 175.3 cm; Wt 74.8 kg
[~2020-01-26 18:40] MED LIST changes: +FINA5TAB3 PO; +INSU100V28 SQ; +MEMA5TAB PO; +Morphine Sulfate Inj IVP
[2020-01-26] MEDS ORDERED: ACETAMINOPHEN 650 MG/SUPP.RECT RC PRN (19:00)
--- NOTE | 2020-01-26 19:10 | NUR ---
ACADEMIC DEPARTMENT CHAIR NOTES PT ADMITTED ON BED FROM TELE TO HOSPICE STATUS, PT ON HIGH YANDEL 60L SPO2 STILL ON 80'S SOMETIME IT GOES TO 90'S PT IS AGITATED AND VERY ANXIOUS SITTER OUTSIDE HIS ROOM PT ALWAYS WANTS TO REMOVED HIS PT GOWN, UNABLE TO ASSESSED PT PAIN, INITIAL ADMISSION ASSESSMENT DONE SAFETY MEASURE MAINTAINED BED SIDE ON LOWEST POSITION WILL CONT TO MONITOR
--- NOTE | 2020-01-26 19:16 | NUR ---
PATIENT GOT ADMITTED TO HOSPICE. ENDORSED TO [facility] FOR ADMISSION.
--- NOTE | 2020-01-26 19:16 | NUR ---
RN CLOSING NOTE: PATIENT REMAINS IN BED. ST IN THE 130S ON THE MONITOR. SAFETY MEASURES IMPLEMENTED, BED IN LOWEST POSITION, LOCKED, SIDE RAILS UP X2, CALL LIGHT WITHIN REACH. ENDORSED TO [facility] FOR CONTINUITY OF CARE.
--- NOTE | 2020-01-26 20:30 | NUR ---
Roshan Gaviria from lab called to relay covid result as positive. Primary RN Deon Bazzi made aware
--- NOTE | 2020-01-26 21:00 | NUR ---
[facility] NOTES PT MORPHINE DRIP STARTED @ 2100 PRN ORDERED WITH RATE OF 1MG/HR WITH MS CHUKCY PRIEST CO SIGN,GIVE REPORT ALSO TO MS CHUCKY PRIEST FOR DAVID Addendum: 01/26/20 at 2227 by CARI FIERRO RN ITS MS DAY LOCKE
--- NOTE | 2020-01-26 21:02 | NUR ---
RT NOTE PT RECEIVED ON HIGH FLOW NASAL CANNULA @ 100%, 60 LPM. PT CONFUSED AND AGITATED. [facility] AWARE. SITTER AT BEDSIDE. PT REMOVES NASAL CANNULA AT OWN DISCRETION, [facility] AWARE. WILL CONTINUE TO MONITOR. Addendum: 01/26/20 at 2104 by EDWARDO JASSO RT Amended: Links added.
[2020-01-27] MEDS ORDERED: KEY,NONCONTROL,TO KEEP IN PYXI 1 EA MC ONE ×4 (08:14→23:16)
--- NOTE | 2020-01-27 18:30 | NUR ---
PATHOLOGIST - CLOSING PER DR. DURANT DO NOT CHANGE ORDER UNTIL HE SEES PATIENT IN THE AM Addendum: 01/27/20 at 1832 by CATHIE PARKER RN PATHOLOGIST - CLOSING PER DR. DURANT DO NOT CHANGE ORDER UNTIL HE SEES PATIENT IN THE AM PATIENT CURRENTLY ON HOSPICE CARE ON INSTRUMENTATION TECHNOLOGIST PUMP 1 MG/ HR. MORPHINE. PATIENT ON HIGH FLOW 30 %. BED LOCKED LOWESTP OSITION CALL LIGHT WITH IN REACH ALL SAFETY MEASURE IMPLEMENTED PER HOSPITAL POLICY CALL HOSPICE NURSE FOR ANY CHANGES IN CARE
--- NOTE | 2020-01-27 19:15 | NUR ---
RN OPENING NOTES: RECEIVED PT A/OX1; CONFUSED.PATIENT IN BED RESTING COMFORTABLY. PATIENT IN NO S/SX OF ACUTE DISTRESS AT THIS TIME. NO SOB NOTED. PATIENT'S BREATHING IS EVEN AND UNLABORED. PATIENT IS ON HIGH FLOW OXYGEN VIA NC ; TOLERATING WELL. PATIENT ON MONITORING READING SINUS TACHY HR IS @120S. NOTED IV SITE ON R HAND #22 ; PATENT IN INTACT,NO S/S OF INFECTION OR INFILTRATION. PATIENT ON MORPHINE DRIP OF 1MG/HR. SAFETY MEASURES HAVE BEEN PROVIDED AND IMPLEMENTED. PATIENT BED ALARM IS ON. HEAD OF BED ELEVATED. BED IS LOCKED, IN LOWEST POSITION AND SIDE RAILS UP. CALL LIGHT WITHIN REACH OF THE PATIENT. ISOLATION PRECAUTIONS IN PLACE. WILL CONTINUE TO MONITOR AND REASSESS FOR ANY CHANGES.
[2020-01-27 20:00] VITALS: BP 155/75
[2020-01-27 20:27] VITALS: BP 155/80
--- NOTE | 2020-01-28 01:00 | NUR ---
RN NOTES NOTED IV SITE ON R HAND TO BE NON PATENT ; FENCE ERECTOR FACILITATED IV SITE CHANGE & REINSERTION ON L HAND.
--- NOTE | 2020-01-28 03:51 | NUR ---
Pt awake and confused, on HFNC 60L 10% FIO2 113 hr 89% SPO2, pt tolerating high flow well, will continue to monitor Addendum: 01/28/20 at 0352 by GUILLERMO WHITE RT Amended: Links added.
[2020-01-28 04:00] VITALS: BP 158/76
--- NOTE | 2020-01-28 06:21 | NUR ---
RN CLOSING NOTE: PATIENT REMAINS IN ROOM. NO SIGNS OF RESPIRATORY. SAFETY MEASURES IMPLEMENTED, BED IN LOWEST POSITION, LOCKED, SIDE RAILS UP, CALL LIGHT WITHIN REACH. ALL NEEDS AND ORDERS ADDRESSED DURING THE SHIFT. PATIENT KEPT CLEAN AND COMFORTABLE WITHIN THE SHIFT. ENDORSED TO INCOMING SHIFT RN FOR CONTINUITY OF CARE.
[2020-01-28] MEDS ORDERED: KEY,NONCONTROL,TO KEEP IN PYXI 1 EA MC ONE ×4 (06:50→23:41)
--- NOTE | 2020-01-28 07:00 | NUR ---
RN NOTES WASTED MORPHINE 55CC WITH DISTRICT SCOUT EXECUTIVE -SOON
--- NOTE | 2020-01-28 07:00 | NUR ---
MEDICAL CLAIMS SPECIALIST. A/OX 1 PATIENT CONFUSED, AT TIMES WILL PULL HIGH FLOW N/C SATURATING @ 80'S OFF FACE PATIENT ON , PATIENT PATIENT ST 110 ON EXTERNAL MONITOR PATIENT IS ON HOSPICE CARE. L HAND 22# WITH MORPHINE DRIP @ 1 MG/ HR BED LOCKED LOWEST POSITION CALL LIGHT WITH IN REACH ALL SAFETY MEASURE IMPLEMENTED PER HOSPITAL POLICY PATIENT IS COMFORT MEASURES ONLY.
[2020-01-28 08:00] VITALS: BP 161/75
[2020-01-28] MEDS: LORAZEPAM INJ 2 MG/ML VIAL IVP PRN ×2 (10:25→14:19)
--- NOTE | 2020-01-28 10:37 | NUR ---
RT NOTE PT WAS TAKEN OFF HFNC BY [facility] PER DR DIGGS ORDERS AND PLACED ON 10L NC.
[2020-01-28 12:00] VITALS: BP 161/75
--- NOTE | 2020-01-28 18:51 | NUR ---
RN HOSPICE1 PATIENT NC 10L PATIENT SATURATING 70'S, PATIENT IS ASLEEP AT THIS TIME. BUT AT TIMES IS AGITATED. PATIENT ON 3MG/ HR OF MORPHINE UP TO [address] DURANT ORDERS. NO SIGNIFICANT CHANGE IN PATIENT CONDITON AT THIS TIME. BED LOCKED LOWEST POSITION CALL LIGHT WITH IN REACH ALL SAFETY MEASURE IMPLEMENTED PER HOSPITAL POLICY
--- NOTE | 2020-01-28 19:15 | NUR ---
RN NOTES: RECEIVED PATIENT ASLEEP ON BED IN SEMI FOWLERS POSITION,WITH O2 INHALATION AT 10L/MIN VIA NC,SATURATING AT 70-75%, A/OX 1 CONFUSE, NO SIGN OF RESTLESSNESS OR AGITATION, NOT IN PAIN OR ANY DISCOMFORT, LYING COMFORTABLY IN BED, NOT IN RESPIRATORY DISTRESS,IV CANNULA ON THE LH G#22 INTACT AND PATENT WITH MORPHINE INFUSION AT 3MG/HR UP TO MAX OF 5MG;PER ENDORSEMENT DAUGHTER IS AWARE OF PATIENT PRESENT PROGNOSIS AND HIS STATUS.DNI-DNR UNDER HOSPICE CARE.FALL.SAFETY AND ASPIRATION PRECAUTION OBSERVED,KEPT CALL LIGHT WITHIN EASY REACH. ON CLOSE WATCH.
[2020-01-28 20:00] VITALS: BP 151/70
--- NOTE | 2020-01-28 20:07 | NUR ---
RN NOTES: KEPT ON CLOSE WATCH, DESATURATING IN BETWEEN, SPO2-66-70'S, LOOKS COMFORTABLE NOT IN DISTRESS, NO FACIAL GRIMACE, REMAIN ASLEEP, NO SIGN OF PAIN OR DISCOMFORT.CN AND RT NOTIFIED, HEAD OF BED ELEVATED AND O2 INCREASE TO 11L/MIN.
--- NOTE | 2020-01-28 21:51 | NUR ---
RN NOTES: ON CLOSE WATCH SPO2-75%, O2 AT 10L/MIN, KEPT ON SEMI FOWLERS POSITION, NEEDS ATTENDED, NO PAIN OR DISCOMFORT, LOOKS COMFORTABLE, NON LABORED BREATHING, NO ABDOMINAL OR STERNAL RETRACTION NOTED.
--- NOTE | 2020-01-28 22:28 | NUR ---
RN NOTES: CHECK AT FREQUENT INTERVALS, AWAKE IN BETWEEN, NO FACIAL GRIMACE, HE IS TURNING SIDE TO SIDES, SPO2-65-70% WITH O2 INHALATION, HR-120-130, NO FEVER, NON LABORED BREATHING.KEPT MONITORED, MORPHINE DRIP AT 3MG/HR.
--- NOTE | 2020-01-28 23:14 | NUR ---
RN NOTES: AWAKE IN BETWEEN, HR-126 SPO2-65% , O2 AT 10L/MIN VIA NC, KEPT ON SEMI FOWLERS POSITION, WHEN ASK IF HE IS IN PAIN, HE SAID "NO PAIN", BEFORE RN LEFT HE SAID "THANK YOU", LOOKS MORE AWAKE, ENCOURAGE TO RELAX.
--- NOTE | 2020-01-29 00:40 | NUR ---
RN NOTES: -AWAKE, NO BM, HE PASS URINE, BED BATH RENDERED, CLEAN AND CHANGE, AFTER HE WAS CLEANED, HE GO BACK TO SLEEP SPO2 REMAIN IN 70'S HR-120, LOOKS MORE RELAX, NO SIGN OF PAIN OR DISCOMFORT, NO RESPIRATORY DISTRESS NOTED.
--- NOTE | 2020-01-29 01:58 | NUR ---
RN NOTES; ASLEEP AT SHORT INTERVALS,WHEN HE IS AWAKE HE IS REMOVING HIS O2, RN PUT IN BACK SPO2-70'S, KEEP ON CLOSE WATCH.
--- NOTE | 2020-01-29 03:42 | NUR ---
RN NOTES: ABLE TO SLEEP AND REST, HE IS REMOVING HIS DRESS, SPO2-73%, O2 ONGOING, HE IS LYING COMFORTABLY, NOT RESTLESS, HE DIDN'T REMOVE HIS O2 INHALATION, KEPT OBSERVED.
[2020-01-29 04:00] VITALS: BP 148/68
--- NOTE | 2020-01-29 05:59 | NUR ---
RN NOTES: AWAKE, HE IS TALKING AND SINGING IN BETWEEN SPO2 IMPROVE TO 81% WY-90, KEPT ON CLOSE WATCH, HE IS NOT TRYING TO REMOVE HIS TUBINGS, KEPT MONITORED.
--- NOTE | 2020-01-29 07:20 | NUR ---
RN NOTES PATIENT IN BED A/PX1 NON VERBAL. AGITATED, OT SATURATION 60-70%. ON NONPROFIT MANAGER PUMP MORPHINE 3MG/HR. CALL LIGHT WITHIN REACH BED AT THE LOWEST POSITION LOCKED . WILL CONTINUE TO MONITOR THE PATIENT.
--- NOTE | 2020-01-29 07:34 | NUR ---
RN NOTES: MORPHINE DRIP STILL ONGOING, CLEAN AND CHANGED, TOTAL 3 VOIDS, NO BM, LATEST WEIGHT IS 165, NO BLOOD TEST, KEPT MONITORED SPO2-60'S HR-120,KEPT ON CLOSE WATCH, NOT IN RESPIRATORY DISTRESS. Addendum: 01/29/20 at 0739 by MOSHE OWENS RN ADDED NOTES; ENDORSED FOR CONTINUITY OF CARE.
[2020-01-29 08:00] VITALS: BP 125/54
[2020-01-29] MEDS: LORAZEPAM INJ 2 MG/ML VIAL IVP PRN (08:00)
[2020-01-29] MEDS ORDERED: KEY,NONCONTROL,TO KEEP IN PYXI 1 EA MC ONE ×3 (08:57→14:55)
[2020-01-29 12:00] VITALS: BP 125/54
--- NOTE | 2020-01-29 15:02 | NUR ---
RN NOTES RECEIVED MORPHINE BAG FROM PHARMACY AND PLACED IN SAFE BOX.
--- NOTE | 2020-01-29 16:45 | NUR ---
RN NOTES PATIENT . PALPATED THE CAROTID ARTERY AND THERE WAS NO SIGN OF PALS.
--- NOTE | 2020-01-29 16:50 | NUR ---
RN NOTES DAUGHTER GWYN WAS CALLED AND INFORMED ABOUT THE FATHER `S . LEGSHONA WAS CALLED AND INFORMED.
--- NOTE | 2020-01-29 17:06 | NUR ---
patient no v/s ,no breathing no pulse at 1645,pronounced with another rn dong,[facility] notified.[facility] neil notified ,family notified by primary rn .
--- NOTE | 2020-01-29 18:04 | NUR ---
RN NOTES MORPHINE IV BAG REMOVED FROM SAFE BOX AND RETURNED TO PHARMACY. IN USE MORPHINE BAG WAS REMOVED FROM BARN WORKER PUMP AND WASTED IN WASTE BIN WITH 2 RN WITNESS.
--- NOTE | 2020-01-29 18:43 | NUR ---
RN NOTES POSTMORTEM CARE PERFORMED . BODY DOUBLE BAGGED WITH BELONGINGS.
--- NOTE | 2020-01-29 19:33 | NUR ---
RN NOTES BODY RELEASED TO MORTUARY. BELONGINGS DOUBLE BAGGED AND RETURNED TO MORTUARY AND BELONGINGS SIGNED.
--- NOTE | 2020-01-29 20:18 | NUR ---
RN NOTE: PATIENT'S DAUGHTER GWYN MADE AWARE OVER THE PHONE THAT [facility]
== END 2020-01-29 16:45 | disposition expired | DRG 177 ==
LOC: HOSPICE1 18:40
PROVIDERS: ADMIT Internal Medicine; ATTEND Internal Medicine
DX: U07.1 COVID-19 (principal); J12.89 Other viral pneumonia; J96.01 Acute respiratory failure with hypoxia; N17.0 Acute kidney failure with tubular necrosis; N25.81 Secondary hyperparathyroidism of renal origin; D61.818 Other pancytopenia; Z66 Do not resuscitate; Z51.5 Encounter for palliative care; N18.9 Chronic kidney disease, unspecified; N40.0 Benign prostatic hyperplasia without lower urinary tract symptoms; F03.90 Unspecified dementia, unspecified severity, without behavioral disturbance, psychotic disturbance, mood disturbance, and anxiety; F32.9 Major depressive disorder, single episode, unspecified; N25.0 Renal osteodystrophy; E11.22 Type 2 diabetes mellitus with diabetic chronic kidney disease; F41.9 Anxiety disorder, unspecified; Z79.84 Long term (current) use of oral hypoglycemic drugs; I48.0 Paroxysmal atrial fibrillation; I50.9 Heart failure, unspecified; Z91.81 History of falling; F29 Unspecified psychosis not due to a substance or known physiological condition; R27.8 Other lack of coordination; Z73.6 Limitation of activities due to disability
CPT/HCPCS: 94760-TC; 94799-TC; A4217; G0378; J2060; J2274; J3490; J7060